=== PATIENT | female | born 1975 | race Caucasian/White ===

== ENCOUNTER → 2017-01-17 | Emergency (ER) | payer MEDICAID ==
[~2017-01-17] VITALS: Ht 160 cm; Wt 58.1 kg
[~2017-01-17] MED LIST: CIPRO 500MG TA500 MG PO; FLAGYL500 M1 PO; TYLENOL 325MG325 MG PO; VOLTAREN75 MG PO
[2017-01-17 17:47] LABS: HEMOGLOBIN 12.6 g/dL (12.2-16.2); LYMPH # 1.7 K/mm3 (0.7-4.5); LYMPH % 9.7 % (10-50.0)
--- OUTSIDE RECORDS SUMMARY | 2017-01-17 18:00 | External Medical Summary Rpt | CCD ---
Author Author , MARINO PICHARDO Address Unknown Phone [email or web address] Care Team Providers Care Shore Working Supervisor Name Role Phone ESTUARDO MHA, ESTUARDO Unavailable Unavailable MHA LYMAN RYLEE ANTONIETA, Unavailable Unavailable LYMAN RYLEE [facility]IETA [facility] Unavailable Unavailable SOLE CEMENTER ST, [facility] SOLE [facility] [place] Unavailable Unavailable PHYSICIANS, [facility] SHARON HANNA, SHARON HANNA Unavailable Unavailable Purpose Continuity of Care Document - 06-13-2013 through 2016 Problems Code Diagnosis DOS Provider Status D509 IRON 09-05-2016 [facility]Y [facility] [facility] UNSPECIFIED EDGE E039 HYPOTHYROID 09-05-2016 ST ISM [facility] UNSPECIFIED [facility]ALTHCARE EDGE E538 DEFICIENCY 09-05-2016 ST OF OTHER [place] SPECIFIED B [facility]ALTHCARE GROUP EDGE VITAMINS E559 VITAMIN D 09-05-2016 ST DEFICIENCY [place] UNSPECIFIED HEALTHCARE EDGE E782 MIXED 09-05-2016 HYPERLIPIDE [facility] [facility] N920 EXCESS & 09-05-2016 FREQUENT [place] [facility]ARE N W/REGULAR EDGE CYCLE R7302 IMPAIRED 09-05-2016 GLUCOSE [facility] ORAL EDGE Z0000 ENCOUNTER 09-05-2016 GEN ADULT [place] MED EXAM HEALTHCARE W/O EDGE ABNORMAL FIND Z6820 BODY MASS 09-05-2016 INDEX BMI [place] 20.0-20.9 PHYSICIANS ADULT M5412 RADICULOPAT 02-01-2015 ST HY CERVICAL [place] REGION [facility]ANS J209 ACUTE 01-22-2015 BRONCHITIS [facility] UNSPECIFIED PHYSICIANS 8798 OPEN WOUND 09-04-2014 UNSPEC SITE [place] WITHOUT PHYSICIANS MENTION COMP V037 NEED PROPH 09-04-2014 VACCINATION [place] W/TETANUS PHYSICIANS TOXOID ALONE 4739 UNSPECIFIED 01-06-2014 SINUSITIS [facility] 3804 IMPACTED 12-19-2013 [facility] 39439 UNSPECIFIED 12-19-2013 [facility] ARTHROPATHY PHYSICIANS SITE UNSPECIFIED 72435 LOSS OF 12-19-2013 WEIGHT [facility] 2469 UNSPECIFIED 08-29-2013 [facility] DISORDER OF THYROID 7245 UNSPECIFIED 08-29-2013 [facility] BACKACHE 2449 UNSPECIFIED 08-05-2013 [facility] HYPOTHYROID MED CTR SOLE CEMENTER ISM ST 6264 IRREGULAR 08-05-2013 [facility] MENSTRUAL CYCLE 2662 OTHER 07-29-2013 B-COMPLEX [facility] SOLE CEMENTER S ST 2689 UNSPECIFIED 07-29-2013 VITAMIN D [facility] SOLE CEMENTER ST 2721 PURE 07-29-2013 HYPERGLYCER [facility]MIA [facility] SOLE CEMENTER ST 2809 UNSPECIFIED 07-29-2013 IRON [facility] SOLE CEMENTER ANEMIA ST 2639 UNSPECIFIED 07-15-2013 [facility] PROTEIN-KARIS PHYSICIANS ORIE MALNUTRITIO N V7231 ROUTINE 07-15-2013 GYNECOLOGIC [facility] AL [facility] EXAMINATION 2669 UNSPECIFIED 06-21-2013 [facility] VITAMIN B RYLEE ANTONIETA DEFICIENCY 2859 UNSPECIFIED 06-20-2013 [facility] ANEMIA RYLEE ANTONIETA V700 ROUTINE 06-13-2013 [facility] CTR SOLE CEMENTER [email or web address] FACL D50.9 Iron deficiency anemia, unspecified E03.9 Hypothyroid ism, unspecified E53.8 Deficiency of other specified B group vitamins E55.9 Vitamin D deficiency, unspecified E78.2 Mixed hyperlipide lizbeth F17.210 Nicotine dependence, cigarettes, uncomplicat ed F33.1 Major depressive disorder, recurrent, moderate F41.1 Generalized anxiety disorder J30.9 Allergic rhinitis, unspecified L81.8 Other specified disorders of pigmentatio n N92.0 Excessive and frequent menstruatio n with regular cycle R73.02 Impaired glucose tolerance (oral) Z00.00 Encounter for general adult medical examination without abnormal findings Z11.59 Encounter for screening for other viral diseases Z12.31 Encounter for screening mammogram for malignant neoplasm of breast Z13.820 Encounter for screening for osteoporosi s Z80.3 Family history of malignant neoplasm of breast Medications Na ND Rx Da Fi Fi Am Da Di Ph RX Ph St me C No te ll ll ou ys ag ar # ys at rm s nt no ma ic us Or Da si cy ia de te s n re d LO 00 10 11 30 30 00 KE Ac RA 78 -3 -2 .0 00 NT ti TA 15 1- 4- 00 UC ve DI 07 20 20 90 [place] NE 70 17 17 20 1 03 CV 10 S PH MG AR MA TA CY BL ET LL C, DB A CV S PH AR MA CY #0 54 37 RA 64 10 11 30 30 00 KE Ac NI 38 -2 -2 .0 00 NT ti TI 00 9- 4 00 UC ve DI 80 20 20 91 [place] NE 30 17 17 84 7 77 CV 15 S 0 PH MG AR MA TA CY BL ET LL C, DB A CV S PH AR MA CY #0 54 37 CV 50 10 11 30 30 00 KE Ac S 42 -2 -2 .0 00 NT ti B- 80 9- - 00 UC ve 12 37 20 20 91 [place] 62 17 17 62 1, 4 67 CV 00 S 0 PH MC AR G MA TA CY BL ET LL C, DB A CV S PH AR MA CY #0 54 37 FO 65 10 11 30 30 00 KE Ac LI 16 -2 -2 .0 00 NT ti C 20 9- 4- 00 UC ve AC 36 20 20 91 [place] ID 11 17 17 62 1 1 66 CV S MG PH AR TA MA BL CY ET LL C, DB A CV S PH AR MA CY #0 54 37 CI 13 10 11 30 30 00 KE Ac TA 66 -2 -2 .0 00 NT ti LO 80 9- 4- 00 UC ve TX 01 20 20 91 [place] AM 10 17 17 62 5 64 CV HB S R PH 40 AR MA MG CY TA LL BL C, ET DB A CV S PH AR MA CY #0 54 37 RA 64 09 10 30 30 00 KE Ac NI 38 -2 -2 .0 00 NT ti TI 00 9- 7- 00 UC ve DI 80 20 20 91 [place] NE 30 17 17 84 7 77 CV 15 S 0 PH MG AR MA TA CY BL ET LL C, DB A CV S PH AR MA CY #0 54 37 CV 50 09 10 30 30 00 KE Ac S 42 -2 -1 .0 00 NT ti UL 85 0- 3- 00 00 UC ve TR 31 20 20 91 [place] A 50 17 17 64 SL 9 28 CV EE S P PH 25 AR MA MG CY TA LL BL C, ET DB A CV S PH AR MA CY #0 54 37 CI 13 09 10 30 30 00 KE Ac TA 66 -1 -1 .0 00 NT ti LO 80 9- 3- 00 00 UC ve TX 01 20 20 91 [place] AM 10 17 17 62 5 64 CV HB S R PH 40 AR MA MG CY TA LL BL C, ET DB A CV S PH AR MA CY #0 54 37 LE 00 09 10 30 30 00 KE Ac VO 37 -1 -1 .0 00 NT ti TH 81 9- 3- 00 00 UC ve YR 80 20 20 91 [place] OX 01 17 17 62 IN 0 65 CV E S 25 PH AR MC MA G CY TA BL LL ET C, DB A CV S PH AR MA CY #0 54 37 FO 65 09 10 30 30 00 KE Ac LI 16 -1 -1 .0 00 NT ti C 20 9- 3- 00 00 UC ve AC 36 20 20 91 [place] ID 11 17 17 62 1 1 66 CV S MG PH AR TA MA BL CY ET LL C, DB A CV S PH AR MA CY #0 54 37 CV 50 09 10 30 30 00 KE Ac S 42 -1 -1 .0 00 NT ti B- 80 9- 3- 00 00 UC ve 12 37 20 20 91 [place] 62 17 17 62 1, 4 67 CV 00 S 0 PH MC AR G MA TA CY BL ET LL C, DB A CV S PH AR MA CY #0 54 37 AM 00 09 10 21 7 00 KE Ac OX 09 -1 -0 .0 00 NT ti IC 33 1- 6- 00 00 UC ve IL 10 20 20 91 [place] LI 90 17 17 45 N 5 14 CV 50 S 0 PH MG AR MA CA CY PS UL LL E C, DB A CV S PH AR MA CY #0 54 37 LO 00 09 09 30 30 00 KE Ac RA 78 -0 -2 .0 00 NT ti TA 15 5- 9- 00 00 UC ve DI 07 20 20 90 [place] NE 70 17 17 20 1 03 CV 10 S PH MG AR MA TA CY BL ET LL C, DB A CV S PH AR MA CY #0 54 37 CI 13 09 09 30 30 00 KE Ac TA 66 -0 -2 .0 00 NT ti LO 80 5- 9- 00 00 UC ve TX 01 20 20 91 [place] AM 00 17 17 31 5 70 CV HB S R PH 20 AR MA MG CY TA LL BL C, ET DB A CV S PH AR MA CY #0 54 37 PN 00 07 08 0. 1 00 KE Ac EU 00 -1 -0 50 00 NT ti MO 64 0- 4- 0 00 UC ve VA 83 20 20 90 [place] X 70 17 17 20 23 3 12 CV S SY PH RI AR NG MA E CY LL C, DB A CV S PH AR MA CY #0 54 37 CI 13 07 08 30 30 00 KE Ac TA 66 -1 -0 .0 00 NT ti LO 80 0- 4- 00 00 UC ve TX 01 20 20 90 [place] AM 00 17 17 20 5 04 CV HB S R PH 20 AR MA MG CY TA LL BL C, ET DB A CV S PH AR MA CY #0 54 37 LO 00 07 08 30 30 00 KE Ac RA 78 -1 -0 .0 00 NT ti TA 15 0- 4- 00 00 UC ve DI 07 20 20 90 [place] NE 70 17 17 20 1 03 CV 10 S PH MG AR MA TA CY BL ET LL C, DB A CV S PH AR MA CY #0 54 37 Encounters Encounter Start End Date Code Location Performer Type [facility] OTHER 7 [address] [facility] [address] 7 7 [facility] [address] - 4 4 [place] 4 4 [facility] 4 4 [facility] - 4 4 [facility]
--- OUTSIDE RECORDS SUMMARY | 2017-01-17 18:00 | External Medical Summary Rpt | CCD ---
Author Author , MARINO PICHARDO Address Unknown Phone [email or web address] Care Team Providers Care Rolling Machine Operator Name Role Phone ESTUARDO MHA, ESTUARDO Unavailable Unavailable MHA LYMAN RYLEE ANTONIETA, Unavailable Unavailable LYMAN RYLEE ANTONIETA [facility] Unavailable [facility] Unavailable Unavailable GAS TESTER ST, [facility] Unavailable Unavailable PHYSICIANS, ST [...] SINUSITIS [facility] 3804 IMPACTED 12-19-2013 [facility] [place] [facility] 00815 UNSPECIFIED 12-19-2013 [facility] ARTHROPATHY PHYSICIANS SITE UNSPECIFIED 38493 LOSS OF 12-19-2013 WEIGHT [facility] 2469 UNSPECIFIED 08-29-2013 JIBRINI MHA DISORDER OF THYROID 7245 UNSPECIFIED 08-29-2013 JIB[facility]I [facility] BACKACHE 2449 UNSPECIFIED 08-05-2013 [facility] HYPOTHYROID MED CTR GAS TESTER ISM ST 6264 IRREGULAR 08-05-2013 [facility] MENSTRUAL CYCLE 2662 OTHER 07-29-2013 B-COMPLEX [place] [facility] GAS TESTER S ST 2689 UNSPECIFIED 07-29-2013 VITAMIN D [facility] GAS TESTER ST 2721 PURE 07-29-2013 HYPERGLYCER [facility] GAS TESTER ST 2809 UNSPECIFIED 07-29-2013 IRON [facility] GAS TESTER ANEMIA ST 2639 UNSPECIFIED 07-15-2013 [facility] PROTEIN-[facility] PHYSICIANS ORIE MALNUTRITIO N V7231 ROUTINE 07-15-2013 GYNECOLOGIC [place] AL [facility] EXAMINATION 2669 UNSPECIFIED 06-21-2013 [facility] VITAMIN B RYLEE ANTONIETA DEFICIENCY 2859 UNSPECIFIED 06-20-2013 [facility] ANEMIA RYLEE ANTONIETA V700 ROUTINE 06-13-2013 [facility] GAS TESTER [email or web address] FACL D50.9 Iron deficiency anemia, unspecified E03.9 [...] LO 80 9- 4- 00 UC ve [place] 01 20 20 91 [place] AM 10 [...] 80 9- 3- 00 00 UC ve [place] 01 20 20 91 [place] AM 10 [...] 80 5- 9- 00 00 UC ve W[place] 01 20 20 91 [place] AM 00 [...] 80 0- 4- 00 00 UC ve W[place] 01 20 20 90 [place] AM 00 [...] Start End Date Code Location Performer Type [facility] OTHER [address] [facility] [address] [facility] - 4 4 [facility] [facility] 4 [address] [facility] [facility] 4 [address] [facility] ST - 4 4 [facility]
--- OUTSIDE RECORDS SUMMARY | 2017-01-17 18:01 | External Medical Summary Rpt | CCD ---
Demographics Preferred Language Ethiopian Marital Status Unknown Yazdanism Affiliation Unknown Race Unknown Ethnic Group Unknown Author Author , MARINO PICHARDO Address Unknown Phone Immunization Unable to retrieve immunization data due to connection failure with Immunization Registry. Please try again later.
--- OUTSIDE RECORDS SUMMARY | 2017-01-17 18:01 | External Medical Summary Rpt | CCD ---
Demographics Preferred Language Bermudian Marital Status Unknown Worship Affiliation Unknown Race Unknown Ethnic Group Unknown Author Author , MARINO PICHARDO Address Unknown Phone Immunization Unable to retrieve immunization data due to connection failure with Immunization Registry. Please try again later.
--- OUTSIDE RECORDS SUMMARY | 2017-01-17 18:01 | External Medical Summary Rpt | CCD ---
Author Author , MARINO Cuevas MARINO Address Unknown Phone [email or web address] Care Team Providers Care Business Liaison Manager Name Role Phone ESTUARDO MHA, ESTUARDO Unavailable Unavailable MHA LYMANCARLOS MCKEE ANTONIETA, Unavailable Unavailable LYMANCARLOS MCKEE ANTONIETA [facility] Unavailable [facility]available [facility] Unavailable Unavailable FILM EDITOR ST, [facility] FILM EDITOR [facility] [place] Unavailable Unavailable PHYSICIANS, [facility] SHARON WOLFE Unavailable Unavailable Purpose Continuity of Care Document - 06-13-2013 through 2016 Problems Code Diagnosis DOS Provider Status D509 IRON 09-05-2016 [facility] [facility] UNSPECIFIED EDGE E039 HYPOTHYROID 09-05-2016 ST ISM [place] UNSPECIFIED HEALTHCARE EDGE E538 DEFICIENCY 09-05-2016 ST OF OTHER [place] SPECIFIED B HEALTHCARE GROUP EDGE VITAMINS E559 VITAMIN D 09-05-2016 [facility]ICIENCY [place] UNSPECIFIED HEALTHCARE EDGE E782 MIXED 09-05-2016 HYPERLIPIDE [facility] [facility] N920 EXCESS & 09-05-2016 FREQUENT [place] [facility]ALTHCARE N W/REGULAR EDGE CYCLE R7302 IMPAIRED 09-05-2016 GLUCOSE [facility] ORAL EDGE Z0000 ENCOUNTER 09-05-2016 GEN ADULT [place] MED EXAM HEALTHCARE W/O EDGE ABNORMAL FIND Z6820 BODY MASS 09-05-2016 INDEX BMI [place] 20.0-20.9 PHYSICIANS ADULT M5412 RADICULOPAT 02-01-2015 HY CERVICAL [place] REGION [facility]ANS J209 ACUTE 01-22-2015 BRONCHITIS [facility] UNSPECIFIED PHYSICIANS 8798 OPEN WOUND 09-04-2014 UNSPEC SITE [place] WITHOUT PHYSICIANS MENTION COMP V037 NEED PROPH 09-04-2014 VACCINATION [place] W/TETANUS PHYSICIANS TOXOID ALONE 8919 UNSPECIFIED 01-06-2014 SINUSITIS [facility] 9985 IMPACTED 12-19-2013 [facility] [place] [facility] 06501 UNSPECIFIED 12-19-2013 [facility] ARTHROPATHY PHYSICIANS SITE UNSPECIFIED 09788 LOSS OF 12-19-2013 WEIGHT [facility] 2469 UNSPECIFIED 08-29-2013 JIBRINI MHA DISORDER OF THYROID 7245 UNSPECIFIED 08-29-2013 JIBRINI MHA BACKACHE 2449 UNSPECIFIED 08-05-2013 [facility] HYPOTHYROID MED CTR FILM EDITOR ISM ST 6264 IRREGULAR 08-05-2013 [facility] MENSTRUAL CYCLE 2662 OTHER 07-29-2013 B-COMPLEX [place] [facility]E [facility] FILM EDITOR S ST 2689 UNSPECIFIED 07-29-2013 VITAMIN D [place] [facility] FILM EDITOR ST 2721 PURE 07-29-2013 HYPERGLYCER [facility] FILM EDITOR ST 2809 UNSPECIFIED 07-29-2013 IRON [facility] FILM EDITOR ANEMIA ST 2639 UNSPECIFIED 07-15-2013 [facility] PROTEIN-KARIS PHYSICIANS ORIE MALNUTRITIO N V7231 ROUTINE 07-15-2013 GYNECOLOGIC [facility] AL PHYSICIANS EXAMINATION 2669 UNSPECIFIED 06-21-2013 [facility] VITAMIN B RYLEE ANTONIETA DEFICIENCY 2859 UNSPECIFIED 06-20-2013 [facility] ANEMIA RYLEE ANTONIETA V700 ROUTINE 06-13-2013 [facility] CTR FILM EDITOR [email or web address] FAC Medications Na ND Rx Da Fi Fi Am Da Di Ph RX Ph St me C No te ll ll ou ys ag ar # ys at rm s nt no ma ic us Or Da si cy ia de te s n re d RA 64 10 11 30 30 00 KE Ac NI 38 -2 -2 .0 00 NT ti TI 00 9- - 00 00 UC ve DI 80 20 20 91 [place] NE 30 17 17 84 7 77 CV 15 S 0 PH MG AR MA TA CY BL ET LL C, DB A CV S PH AR MA CY #0 54 37 CV 50 10 11 30 30 00 KE Ac S 42 -2 -2 .0 00 NT ti B- 80 9- 4- 00 00 UC ve 12 37 20 [...] LO 80 9- 4- 00 UC ve ND 01 20 20 91 [place] AM 10 17 17 62 5 64 CV HB S R PH 40 AR MA MG CY TA LL BL C, ET DB A CV S PH AR MA CY #0 54 37 LO 00 10 11 30 30 00 [...] -2 .0 00 NT ti TI 00 9 7 00 UC ve DI 80 20 20 91 [place] NE 30 17 17 84 7 77 CV 15 S 0 PH MG AR MA TA CY BL ET LL C, DB A CV S PH AR MA CY #0 54 37 CI 13 09 10 30 30 00 KE Ac TA 66 -1 -1 .0 00 NT ti LO 80 9- 3- 00 UC ve ND 01 20 20 91 [place] AM 10 17 17 62 5 64 CV HB S R PH 40 AR MA MG CY TA LL BL C, ET DB A CV S PH AR MA CY #0 54 37 LE 00 09 10 30 30 00 KE Ac VO 37 -1 -1 .0 00 NT ti TH 81 9- 3- 00 UC ve YR 80 20 20 [...] NT ti C 20 9- 3- 00 UC ve AC 36 20 20 [...] 80 5- 9- 00 00 UC ve ND 01 20 20 91 [place] AM 00 [...] 80 0- 4- 00 00 UC ve ND 01 20 20 90 [place] AM 00 [...] Start End Date Code Location Performer Type Date [facility] OTHER [address] [facility] [address] [facility] [address] 4 4 [place] [facility] - 4 4 [facility] [facility] [place] - 4 4 [place] [facility] [place] - 4 4 [facility] [facility]
--- OUTSIDE RECORDS SUMMARY | 2017-01-17 18:01 | External Medical Summary Rpt | CCD ---
Author Author , MARINO Cuevas MARINO Address Unknown Phone [email or web address] Providers Care Fitting Room Attendant Name Role Phone ESTUARDO MHA, ESTUARDO Unavailable Unavailable MHA LYMANCARLOS MCKEE ANTONIETA, Unavailable Unavailable LYMANCARLOS MCKEE ANTONIETA [facility] Un[facility] Unavailable Unavailable TOOL ROOM SUPERVISOR ST, [facility] TOOL ROOM SUPERVISOR ST [facility] [place] Unavailable Unavailable PHYSICIANS, ST [...] W/REGULAR EDGE CYCLE R7302 IMPAIRED 09-05-2016 [facility]SE [facility] ORAL EDGE Z0000 ENCOUNTER 09-05-2016 GEN ADULT [place] MED EXAM HEALTHCARE W/O EDGE ABNORMAL FIND Z6820 BODY MASS 09-05-2016 INDEX BMI [place] 20.0-20.9 PHYSICIANS ADULT M5412 RADICULOPAT 02-01-2015 HY CERVICAL [place] [facility] J209 ACUTE 01-22-2015 BRONCHITIS [place] UNSPECIFIED PHYSICIANS 8798 OPEN WOUND 09-04-2014 UNSPEC SITE [place] WITHOUT PHYSICIANS MENTION COMP V037 NEED PROPH 09-04-2014 VACCINATION [place] W/TETANUS PHYSICIANS TOXOID ALONE 8329 UNSPECIFIED 01-06-2014 SINUSITIS [facility] [facility] 0907 IMPACTED 12-19-2013 [facility] [place] [facility] 32904 UNSPECIFIED 12-19-2013 [facility] ARTHROPATHY PHYSICIANS SITE UNSPECIFIED 38846 LOSS OF 12-19-2013 WEIGHT [facility] 2469 UNSPECIFIED 08-29-2013 JIBRINI MHA DISORDER OF THYROID 7245 UNSPECIFIED 08-29-2013 JIBRINI MHA BACKACHE 2449 UNSPECIFIED 08-05-2013 [facility] HYPOTHYROID MED CTR TOOL ROOM SUPERVISOR ISM ST 6264 IRREGULAR 08-05-2013 [facility]AN MENSTRUAL CYCLE 2662 OTHER 07-29-2013 B-COMPLEX [place] [facility] CTR TOOL ROOM SUPERVISOR S ST 2689 UNSPECIFIED 07-29-2013 VITAMIN D [place] [facility] TOOL ROOM SUPERVISOR ST 2721 PURE 07-29-2013 HYPERGLYCER [facility] TOOL ROOM SUPERVISOR ST 2809 UNSPECIFIED 07-29-2013 IRON [facility] MED CTR TOOL ROOM SUPERVISOR ANEMIA ST 2639 UNSPECIFIED 07-15-2013 [facility] PROTEIN-KARIS PHYSICIANS ORIE MALNUTRITIO N V7231 ROUTINE 07-15-2013 GYNECOLOGIC [facility] [facility]YS[facility] EXAMINATION 2669 UNSPECIFIED 06-21-2013 [facility] VITAMIN B RYLEE ANTONIETA DEFICIENCY 2859 UNSPECIFIED 06-20-2013 [facility] ANEMIA RYLEE ANTONIETA V700 ROUTINE 06-13-2013 [facility] CTR TOOL ROOM SUPERVISOR [email or web address] FAC Medications Na ND Rx Da Fi [...] LO 80 9- 4- 00 UC ve MD 01 20 20 91 [place] AM 10 [...] LO 80 9- 3- 00 UC ve MD 01 20 20 91 [place] AM 10 [...] 80 5- 9- 00 00 UC ve MD 01 20 20 91 [place] AM 00 [...] 80 0- 4- 00 00 UC ve MD 01 20 20 90 [place] AM 00 [...] End Date Code Location Performer Type Date [facility] OTHER 7 [address] [facility] [address] [facility] 4 4 [place] [facility] - 4 4 [place] [facility] - 4 4 [place] [facility] - 4 4 [place] [facility]
[2017-01-17 18:05] LABS: NEUTROPHILS 81 % (42-76)
--- NOTE | 2017-01-17 18:27 | Emergency Room Report ---
History of Present Illness Time Seen by [id number] Presenting Problem in Triage Pt arrived:Walked Presenting Problem:PT C/O BLACK STOOL SINCE THIS AM. PT ADVISES THAT SHE HAS HAD DIARRHEA X4 DAYS AND HX OF HEMRHOIDS. PT ALSO ADVISES THAT SHE HAS TAKEN PEPTO BISMOL Onset of symptoms date/time:/ or onset unknown for:MEDICAL HX UNKNOWN Treatment Prior to Arrival: MANAGER RISK Provided by: Sepsis Risk Assessment: Temp: 98.7 B/P: 133/75 MAP: 94 Pulse: 97 Resp: 20 Recent fever? N Clinical Suspician of Infection? N Mental Status: 1 - Regular (Normal Baseline) Sepsis Risk:Possible Sepsis Risk Have you (or family members/close friends) recently traveled outside the [place]? N If Yes, where/when: Have you had exposure to infectious disease within the past month? N TB? Other? Specify: Comment The patient complains of diarrhea, abdominal pain, and black stool. Diarrhea for 5 days, but worse for 3 days and stool has been black for 3 days. She drank a whole bottle of Pepto-Bismol. Generalized periumbilical abdominal pain. No fever. No vomiting or hematemesis. No history of gastrointestinal bleed in the past. ALLERGIES Coded Allergies: No Known Allergies (01/17/17) Home Medications Reported Medications Acetaminophen (Tylenol 325MG) 325 MG PO ONCE History Medical History General CAD? No Angina: No MD: No Hypertension? No Hyperlipidemia? No CHF? No DVT? No PE? No COPD? No Asthma? No Anemia? No GERD? No Gastric ulcers? No GI Bleed? No Hernia? No Thyroid Problems? No Hypothyroidism? No CVA? No Seizures? No Diabetes? No Renal Insuffiency? No End Stage Renal Disease? No UTI? No Stones? No BPH? No GB Disease: No Nephritic Syndrome? No Asplenia? No Hepatitis? No Sickle Cell Disease? No Arthritis? No Migraines? No Cataracts? No Glaucoma? No MRSA? No HIV? No TB? No Anxiety? No Depression? No Cancer? No More? No Immunization Hx DT/Tetanus > 10 YRS Surgical Hx Previous Surgery?Y T&A [employer] Hx LMP N/A Social History Smoking Hx Smoker: Current Every Day Smoker Tobacco: Yes Type Cigarettes Packs/day 1 1/2 - 2 Packs Alcohol Alcohol: Yes Review of Systems All Other Systems Reviewed and Negative Constitutional denies fever Gastrointestinal abdominal pain, diarrhea, denies nausea, denies vomiting Physical Exam Vital Signs Vital Signs Date Time Temp Pulse Resp B/P Pulse O2 O2 Flow FiO2 Ox Delivery Rate 01/17 1935 97 20 109/67 95 01/17 1720 98.7 97 20 133/75 95 General Appearance no apparent distress Eye Exam - bilateral eye normal exam, bilateral eye PERRL, bilateral eye EOMI Ear, Nose, Throat hearing grossly normal, normal ENT inspection Neck normal inspection, non-tender, supple, full range of motion Respiratory Status Yes: trachea midline, chest symmetrical, non tender chest. No: respiratory distress. Lung Sounds bilateral: normal breath sounds, lungs clear. Cardiovascular normal exam, regular rate/rhythm, no peripheral edema, no gallop, no JVD, no murmur, no rub, normal peripheral pulses Peripheral Pulses Pulses normal Yes Gastrointestinal normal bowel sounds, normal exam, non tender, soft, no organomegaly Extremities non-tender, normal range of motion, normal inspection Neurologic alert, normal exam, oriented x 3 Mental status normal mood/affect Skin intact, normal color, warm/dry Medical Decision Making LABS/Meds/Orders Pt receiving controlled substance in ED? Yes Lonnie was queried for this patient? Yes Comment [id number] rxs. Results/Orders Laboratory Tests 01/17/17 1845: Stool Occult Blood NEGATIVE 01/17/17 1730: Sodium 134 L, Potassium 3.0 L, Chloride 98, Carbon Dioxide 28, BUN 2 L, Creatinine 0.7, Estimated Creat Clear 97, Estimated GFR (MDRD) 92, Glucose 90, Calcium 8.7, Total Bilirubin 0.2, AST 19, ALT 10 L, Alkaline Phosphatase 107, Total Protein 7.4, Albumin 3.0 L, Globulin 4.4 H, Albumin/Globulin Ratio 0.7 L, WBC 17.6 H, RBC 4.03 L, Hgb 12.6, Hct 37.5, MCV 93.2, RDW 13.1, Plt Count 384, MPV 7.0 L, Gran % 83.7 H, Gran # 14.8 H, Total Counted 100, Lymphocytes % 9.7 L, Monocytes % 2.9, Eosinophils % 3.1, Basophils % 0.5, Neutrophils 81 H , Band Neutrophils 8, Lymphocytes (Manual) 7 L, Lymphocytes # 1.7, Monocytes ( Manual) 2, Monocytes # 0.5, Eosinophils # 0.6 H, Eosinophils # (Manual) 2, Basophils # 0.1, Platelet Estimate NORMAL, PUBS MCHC 33.4, MCH 31.2 Current Medication Orders Sig/Elieser Start time Last Medication Dose Route Stop Time Status Admin Tramadol HCl 50 MG ONCE ONE 01/18 2000 AC PO 01/17 2001 Tramadol HCl 1 ELIZA ONCE ONE 01/18 2000 AC PO 01/17 2001 Iopamidol 75 ML ONCE ONE 01/17 194 UNV 01/17 IV 01/17 194 1932 Levofloxacin 500 MG ONCE ONE 01/17 194 DC PO 01/17 1946 Metronidazole 500 MG ONCE ONE 01/17 194 DC PO 01/17 194 Sodium Chloride 10 ML PRN PRN 01/17 194 UNV 01/17 IV 01/17 210 1932 Potassium Chloride 0 .STK-MED ONE 01/17 1828 DC PO Potassium Chloride 40 MEQ ONCE ONE 01/17 1815 DC 01/17 PO 01/17 181 1901 Sodium Chloride 10 ML PRN PRN 01/17 1730 AC IV 01/18 1725 Orders Procedure Date/time Status DIET-NOTHING BY MOUTH 01/[address] ABD & PELVIS W/ CONTRAST 01/[address] ABD/PELVIS REQ 01/17 1846 Active SERUM , QUAL 01/17 1841 Complete DIARRHEA PANEL, PCR 01/17 1826 Active DIFFERENTIAL-WBC 01/17 1730 Complete IV SALINE LOCK 01/17 1725 Active STOOL OCCULT BLOOD 01/17 1725 Complete CBC WITH AUTO DIFF 01/17 1725 Complete CHEM 12 PROFILE 01/17 1725 Complete XRAY/CT/US XRAY/CT/US CT abdomen, pelvis Comment CT scan interpreted by ad radiologist. Faxed report received and reviewed: Colitis. Diffuse. Bilateral multifocal groundglass lung densities, nonspecific. Progress - 7:40 PM: Discussed results with patient. Black stool appears secondary to Pepto- Bismol, guaiac is negative. CT scan shows colitis, elevated WBC, likely infectious in origin. She appears well-hydrated and nontoxic and comfortable. She is sitting upright in bed, legs crossed, drinking a soda. We discussed disposition, she wants to go home. She does not want intravenous antibiotics here, she wants her first dose orally so that she can be discharged. She request tramadol for pain. She has a primary care physician, Dr. Melton in Dr. Uriostegui's office, I advised her to follow-up this week and if diarrhea persists she should have a stool culture sent. She is unable to provide a sample here. Departure Departure Disposition DC Home or Self Care(routine) Clinical Impression Primary Impression: Colitis Condition STABLE Referrals SCOTTY SAUCEDO (Family) Patient Instructions DI for Colitis Additional Instructions Additional instructions for ABDOMINAL PAIN: See your physician as soon as possible for further evaluation, call on Thursday. Return immediately if worsening or severe abdominal pain, vomiting, shortness of breath, fever, vomiting of blood or abdominal distention, blood in stool. Additional instructions for CONTROLLED SUBSTANCES: You have been prescribed a medication that is a controlled substance. Controlled substances include pain medications known as opiates and sedative nerve medications known as benzodiazepines. Some common opiates include: Codeine (such as Tylenol #3) Hydrocodone (Vicodin, Lortab, Lorcet, [place]) Oxycodone (Percocet, Percodan, Oxycodone, Oxy IR) Some common benzodiazepines include: Diazepam (Valium) Lorazepam (Ativan) Alprazolam (Xanax) Clonazepam (Klonopin) Oxazepam (Serax) All of these controlled substances are highly addictive and frequently abused. Misuse can and frequently does lead to addiction as well as overdose and . Medication should be stored in a locked cabinet or other secure storage unit. Do not store the medication in a motor vehicle. Short term supplies, 3 days or less, are prescribed because of the highly addictive nature of the medication. Any of the controlled substance medication NOT taken should be disposed of properly and NOT SAVED. The recommended method of disposing of unused medications is: Place the medicines in a sealable plastic bag. If the medicine is a solid, crush it or add water to dissolve it. Add something undesirable (cat litter, coffee grounds, etc.) Dispose of sealed bag in household trash Do not flush or pour unused medicines down a sink or drain. Controlled substances should not be shared, given away or sold. Because of the addictive nature and frequent abuse, these medications are sometimes stolen. These medications should be kept in a safe place where they cannot be stolen. Do not keep them in your car or purse. Lost or stolen prescriptions for controlled substances WILL NOT BE REFILLED in this emergency department, regardless of whether a police report was filed. Prescriptions Current Visit Scripts Ciprofloxacin HCl (Cipro 500MG TAB) 500 MG PO BID #20 TAB Metronidazole (Flagyl) 500 MG PO TID #30 TAB ED Critical Care Critical Care No at 1950
[2017-01-17 19:02] LABS: STOOL OCCULT BLOOD NEGATIVE (NEG)
[2017-01-17 20:02] VITALS: BP 118/68
--- NOTE | 2017-01-18 09:37 | RADIOLOGY REPORT PS360 ---
CT ABD PELVIS W/ CONTRAST Ordering Physician: Amilcar Monroy MD Patient Age: 41 years: Female HISTORY: ABD PAIN/BLACK STOOL TECHNIQUE: Helical CT scanning performed at of pelvis with 75 cc Isovue 370 utilized. No oral contrast. Sagittal coronal CT workstation. COMPARISON :No previous FINDINGS Lung bases patchy moderate density groundglass densities at lung bilaterally on axial images. On the sagittal coronal reconstructions this may merely reflect areas of linear, basilar atelectasis and scarring.. On towards the lateral chest to correlate for pneumonia/pneumonitis] upon some chronic lung changes. Small gastric slightly hiatal hernia noted.. Abdomen/pelvis. Liver. Unremarkable. Spleen unremarkable. Adrenals unremarkable. Pancreas appears satisfactory. Unremarkable. Gallbladder. No discrete findings. Kidneys. No urinary tract obstruction or calculi. Cortical Scarring right kidney more evident than left. GI TRACT. Liquid semisolid stool is seen throughout the right and transverse colon with air-fluid levels in these regions. Mild wall thickening is seen throughout the entire colon but most evident at the descending colon, and sigmoid.. This yields a slight hazy appearance in the paracolic fat surrounding the descending colon 3. The terminal ileum appears normal. No evidence of appendicitis appendix only questionably visualized. Small bowel appears normal caliber upper normal wall thickness in some areas of proximal small bowel.. Stomach. Moderate distention with mainly fluid and minimal food at stomach. Osseous. No osseous lesions mild levoscoliosis of L-spine could be positional sclerotic area at the proximal left femoral shaft likely bone island IMPRESSION: 1. Diffuse colitis.. Most evident wall thickening at splenic flexure extending colon & rectosigmoid. Liquid semisolid stool most evident at the right and transverse colon 2. Patchy groundglass opacities lung bases. Recommend PA and lateral chest to correlate. On final review this appearance may be part due to scarring and atelectasis along with chronic lung changes. But Warrants follow-up and was noted by [facility]
== END ==
LOC: ER 17:04
PROVIDERS: Emergency Medicine
DX: K52.9 Noninfective gastroenteritis and colitis, unspecified (principal)
CPT/HCPCS: G0328; Q9967